=== PATIENT | male | born 1940 | race Caucasian/White ===

== ENCOUNTER 2018-07-09 10:36 | Outpatient (CLI) | payer MEDICARE ==
[~2018-07-09 10:36] MED LIST: Gadobenate Dimeglumine 529 MG/1 ML (20ML VIAL) ONE
--- NOTE | 2018-07-09 13:42 | MRI ---
MRI BRAIN WITHOUT AND WITH CONTRAST: Date: 07/09/18 HISTORY: Dementia. TECHNIQUE: Multiplanar, multisequence MR images were obtained of the brain without and with IV contrast. FINDINGS: There are scattered foci of high FLAIR signal in the subcortical and periventricular white matter, li argenis secondary to small vessel ischemic disease. Encephalomalacia is seen in the left parietooccipita l region from prior left SCIENTIFIC ARTIST distribution infarction. There is prominence of the lateral ventricles, including the temporal horns, which may be secondary to hydrocephalus and/or ex vacuo dilatation of t he ventricles secondary to cerebral atrophy. There is no evidence of intracranial hemorrhage or extra-axial fluid collections. The expected flow-v oids are present. The corpus callosum, pituitary, and craniocervical junction are unremarkable. No ab normal enhancement is seen on this examination. The calvarium and overlying soft tissues are unremarkable. Mucosal thickening is seen in the maxillar y sinuses. IMPRESSION: 1. Cerebral atrophy. 2. Hydrocephalus. 3. No evidence of acute intracranial abnormality. 4. 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 POS: [facility]
== END 2018-07-09 10:37 | disposition home or self-care (01) ==
LOC: SCSMRI 10:36
PROVIDERS: ATTEND Family Medicine
DX: I63.89 Other cerebral infarction (principal); G31.9 Degenerative disease of nervous system, unspecified; G91.9 Hydrocephalus, unspecified; I67.82 Cerebral ischemia
CPT/HCPCS: 70553; 82565; A9577

== ENCOUNTER 2018-07-30 16:57 | Observation (INO) | payer MEDICARE ==
[2018-07-30 17:35] LABS: #Basophils 0.1 thou/uL (0.0-0.2); #Eosinphils 0.2 thou/uL (0.0-0.7); #Lymphocytes 1.8 thou/uL (1.20-3.40); #Monocytes 0.7 thou/uL (0.11-0.59); #Neutrophils 5.6 thou/uL (1.40-6.50); %Basophils 0.7 % (0.0-1.0); %Eosinophils 2.9 % (0.0-10.0); %Lymphocytes 21.2 % (21.0-51.0); %Monocytes 8.4 % (0.0-10.0); %Neutrophils 66.8 % (42.0-75.0); Hemoglobin 14.8 g/dL (14.0-18.0); Mean Corpuscular HGB CONC 33.6 g/dL (32.0-36.0); Mean Corpuscular Volume 89.3 fL (78.0-98.0); Mean Platelet Volume 8.9 fL (7.4-10.4); Platelet Count 128 thou/uL (130-400); RBC Distribution Width 14.3 % (11.5-14.5); Red Blood Cell (RBC) Count 4.93 mill/uL (4.70-6.10); White Blood Cell (WBC) Count 8.3 thou/uL (4.8-10.8)
[2018-07-30 18:07] LABS: Calcium 10.4 mg/dL (7.8-10.44); Chloride 104 mmol/L (98-107); Potassium 4.1 mmol/L (3.5-5.1); Sodium 140 mmol/L (136-145)
[2018-07-30 18:13] LABS: Albumin 4.4 g/dL (3.4-4.8)
[2018-07-30 18:15] LABS: Glucose 130 mg/dL (83-110)
[2018-07-30 18:16] LABS: Globulin 3.4 g/dL (2.4-3.5); Protein, Total 7.8 g/dL (5.8-8.1)
[2018-07-30 18:17] LABS: Anion Gap 13 mmol/L (10-20); Bilirubin, Total 0.5 mg/dL (0.2-1.2); Carbon Dioxide 26 mmol/L (23-31)
[2018-07-30 18:18] LABS: Alkaline Phosphatase 89 U/L (40-150)
[2018-07-30 18:19] LABS: BUN (Urea Nitrogen) 21 mg/dL (8.4-25.7); Calc. Creatinine Clearance 0 mL/min (70-130); Estimated GFR-MDRD 58
[2018-07-30 18:20] LABS: AST (SGOT) 12 U/L (5-34)
[2018-07-30 18:21] LABS: ALT (SGPT) 8 U/L (8-55)
--- NOTE | 2018-07-30 19:33 | CT ---
FEXAM: CT brain without contrast PROVIDED CLINICAL HISTORY: Altered mental status COMPARISON: MRI of brain 07/09/2018 FINDINGS: The ventricular system remains prominent, out of proportion to the degree of sulcal prominence. There is no shift of the midline structures. The basilar cisterns appear patent. No evidence for intracran ial hemorrhage. Remote left APPAREL PATTERNMAKER distribution infarction is redemonstrated. The extracranial soft tiss ues and osseous structures demonstrate no acute abnormality. IMPRESSION: No evidence for intracranial hemorrhage or mass effect. Prominence of the ventricular system out of p roportion to the degree of sulcal prominence may reflect normal pressure hydrocephalus.
--- NOTE | 2018-07-30 20:48 | PDOC.FPRHP ---
- History of Present Illness Chief Complaint: agitation History of Present Illness: 77yo M with pmh of advanced dementia and normopresusre hydrocephalus presents to ER from [facility] for 1 month hx of increased agitation. Pt was oriented only to self and unable to provide hx though pts son [place] and [facility] were called by FM team and gained some hx that way. In addition to agitation pt has had increased unsteadyness on feet and increasing frequency of urinary incontinence. 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 No other sympoms. ED Course: CT brain- large ventricles suggestive of NPH - Allergies/Adverse Reactions Allergies Allergy/AdvReac Type Severity Reaction Status Date / Time No Known Drug Allergies Allergy Verified 07/31/18 04:26 - Home Medications Medication Instructions Recorded Confirmed Type Lorazepam [Ativan] 0.5 mg PO BID PRN 07/31/18 07/31/18 History Memantine HCl [Namenda] 10 mg PO DAILY 07/31/18 07/31/18 History Multivitamin [Daily Multiple 1 tablet 07/31/18 History Vitamin] Rivastigmine Patch [Exelon Patch] 9.5 mg TOP DAILY 07/31/18 07/31/18 History Zantac 150 mg PO DAILY 07/31/18 07/31/18 History risperiDONE [Risperdal] 0.5 mg PO DAILY 07/31/18 07/31/18 History - History PMHx: Dementia, NPH, HTN, HLD, chronic back pain since unknown back surgery, throat cancer s/p chemo/radiation and in remission PSHx: back surgery (unspecified) FHx: none Social: former ETOH abuse (last use 1 month ago) - Review of Systems General: denies: fever/chills, fatigue Respiratory: denies: shortness of breath Cardiovascular: denies: chest pain - Vital signs BP: 193/85, Pulse: 87, Resp: 18, Temp: 98.0 (Oral), Pain: 2, O2 sat: 98 on Room Air, Time: 07/30/2018 16:58. WEIGHT: 88kg - Physical Exam Constitutional: NAD, other (oriented only to person) HEENT: EOMI, conjunctiva clear, grossly normal vision, MMM Neck: supple, trachea midline Chest: no-tender to palpation Heart: RRR, normal S1/S2 Lungs: CTAB, no respiratory distress Abdomen: soft, non-tender Musculoskeletal: normal structure, normal tone Neurological: no focal deficit, CN II-XII intact, normal sensation, DTRs 2+, other (oriented only to person, decreased hearing R ear) Skin: no rash/lesions, good turgor Heme/Lymphatic: no unusual bruising or bleeding, no purpura Psychiatric: normal mood and affect FMR H&P: Results - Labs Result Diagrams: 07/30/18 17:26 07/30/18 17:26 Lab results: WBC 8.3 thou/uL (4.8-10.8) 07/30/18 17:26 Hgb 14.8 g/dL (14.0-18.0) 07/30/18 17:26 Hct 44.0 % (42.0-52.0) 07/30/18 17:26 MCV 89.3 fL (78.0-98.0) 07/30/18 17:26 Plt Count 128 thou/uL (130-400) L 07/30/18 17:26 Neutrophils % 66.8 % (42.0-75.0) 07/30/18 17:26 Sodium 140 mmol/L (136-145) 07/30/18 17:26 Potassium 4.1 mmol/L (3.5-5.1) 07/30/18 17:26 Chloride 104 mmol/L (98-107) 07/30/18 17:26 Carbon Dioxide 26 mmol/L (23-31) 07/30/18 17:26 BUN 21 mg/dL (8.4-25.7) 07/30/18 17:26 Creatinine 1.21 mg/dL (0.7-1.3) 07/30/18 17:26 Glucose 130 mg/dL (83-110) H 07/30/18 17:26 Calcium 10.4 mg/dL (7.8-10.44) 07/30/18 17:26 Total Bilirubin 0.5 mg/dL (0.2-1.2) 07/30/18 17:26 AST 12 U/L (5-34) 07/30/18 17:26 ALT 8 U/L (8-55) 07/30/18 17:26 Alkaline Phosphatase 89 U/L (40-150) 07/30/18 17:26 Serum Total Protein 7.8 g/dL (5.8-8.1) 07/30/18 17:26 Albumin 4.4 g/dL (3.4-4.8) 07/30/18 17:26 FMR H&P: A/P - Problem List (1) Hydrocephalus in adult Current Visit: Yes Status: Acute Code(s): G91.9 - HYDROCEPHALUS, UNSPECIFIED (2) Agitation Current Visit: Yes Status: Acute (3) HTN (hypertension) Current Visit: Yes Status: Acute Code(s): I10 - ESSENTIAL (PRIMARY) HYPERTENSION (4) HLD (hyperlipidemia) Current Visit: Yes Status: Acute Code(s): E78.5 - HYPERLIPIDEMIA, UNSPECIFIED (5) History of throat cancer Current Visit: Yes Status: Acute Code(s): Z85.819 - PRSNL HX OF MALIG NEOPLM OF UNSP SITE LIP,ORAL CAV,& PHARYNX - Plan Normopressure hydrocephalus with increased agitation A- Pt has been previously diagnosed and had plans for outpt f/u with Neurosurgery (Dr. Nogueira) on the of this month. CT shows evidence of this Dx as well today. On exam pt is not currently agitated. Son reports that pt has been "kicked out" of jail for good. workup otherwise negative so far. UA pending. considering hx of alcohol misuse and confabulation, will consider wernicke encephalitis as well. P- observe on stroke for neurochecks - possible neuro/neurosurg consult in AM - UDS and serum Drug screen - thiamine, folate, b12 lvls - start thiamine and b complex vitamins - f/u UA - consult CM for placement Dementia - continue home meds HTN A- pt hypertensive while agitated SBP > 180. Since then BP has normalized to 150 's/70's. No home meds are listed P- confirm home meds with son in AM HLD - confirm home meds in AM CODE: full, discussed with pt and with son who are both in agreement family: none at bedside, son [place] ) will be there in AM FMR H&P: Upper Level - Pertinent history Dominic Polk is a 77 year old male with a past history of alzheimers disease who presents to the ED for worsening agitation. Per [place] staff, pt has been more aggressive and verbally abusive to residents and staff and more difficult to manage. He has also been more "off balance" and has had urinary incontinence over the past month. An outpatient workup was started, and pt had an MRI of the brain on 07/09 that showed hydrocephalus. Neurosurgery evaluation was scheduled for later this month. - Pertinent findings Exam: General: alert and oriented to person only. In no distress, pt resting comfortably in bed Heart: regular rate and rhythm, no murmurs, rubs, or gallops. Lungs: clear to auscultation bilaterally. Neuro: CN II-XII intact grossly; No focal deficits; 2+ reflexes. CT brain: prominence of ventricles out of proportion to degree of sulcal prominence; no acute pathology. - Plan Date/Time: 07/30/182046 I, Beverley Merritt, have evaluated this patient and agree with findings/plan as outlined by rn international resident. Pertinent changes/additions are listed here. Likely Normal pressure hydrocephalus - will admit to medical unit for observation - likely discuss pt w/ Dr. Nogueira in AM. Pt may require LP for diagnosis and treatment - with worsening encephalopathy, will also check UA, UDS/SDS, NH3 for other causes of encephalopathy. - pending medical clearance, pt may also need MR eval for placement. Addendum - Attending - Attending Attestation Date/Time: 07/31/18 07 I personally evaluated the patient and discussed the management with Dr. Ureña last night. I agree with the History, Examination, Assessment and Plan documented above with any addition or exceptions noted below.
[2018-07-30] MEDS ORDERED: Haloperidol Lactate 5 MG/ML VIAL IM PRN (21:05)
[2018-07-30] MEDS ORDERED: Acetaminophen 325 MG TAB PO PRN (21:05)
[2018-07-30] MEDS ORDERED: Calcium Carbonate 500 MG ChewTAB PO PRN (21:05)
[2018-07-30 21:28] LABS: Acetaminophen Less than 6.0 mcg/mL (10.0-30.0); Alcohol Less than 10 mg/dL (Less than 10); Salicylate Less than 8.0 mg/dL (15.0-30.0)
[2018-07-31 00:28] VITALS: BMI 32.6
[2018-07-31] MEDS ORDERED: Lorazepam 0.5 MG TAB PO PRN (02:28)
--- NOTE | 2018-07-31 07:56 | PDOC.EVN ---
Event Note - Event Note Event Note: Patient's PCP is Dr. Chavez discussed case with Dr. Chavez, to transfer care, who states that Hospitalist service admits for his patients. Discussed case with Dr. Beckwith who will talk with Dr. Branch to accept care of patient. Will sign off.
[2018-07-31] MEDS: Rivastigmine 9.5mg/24 Hour PATCH TOP SCH (09:16)
[2018-07-31] MEDS: Thiamine 100 MG TAB PO SCH (09:16)
[2018-07-31] MEDS: risperiDONE 0.25 MG TAB PO SCH (09:16)
[2018-07-31 09:17] LABS: Bilirubin Negative (Negative); Blood, Urine Trace (Negative); Clarity CLOUDY (Clear); Glucose, Urine (Dipstick) Negative (Negative); Leukocyte Small (Negative); Nitrite Positive (Negative); Protein, Urine (Dipstick) Negative (Neg-Trace); Specific Gravity, Urine 1.014 (1.002-1.036); pH, Urine 6.5 (5.0-9.0)
[2018-07-31] MEDS: Multivit, Therapeutic 1 TAB PO SCH (09:17)
[2018-07-31] MEDS: Folic Acid/Vit B Comp W-C PO SCH (09:17)
[2018-07-31] MEDS: Famotidine 20 MG TAB PO SCH ×2 (09:17→21:48)
[2018-07-31 09:21] LABS: Bacteria/HPF 2+ HPF (None Seen); Hyaline Casts/LPF 0-3 HYALINE CAST LPF (0-3 Hyaline); Pathc Cast-AUWi Flag 0.13 (0-2.49); Squamous Epithelial None Seen HPF (0-3); WBC/HPF 21-50 HPF (0-3)
[2018-07-31 09:29] LABS: Amphetamine Not Detected (NotDetected); Barbiturates Screen Not Detected (NotDetected); Benzodiazepine Screen Detected (NotDetected); Cocaine Metabolite Screen Not Detected (NotDetected); Medtox Control Line Valid? VALID (VALID); Medtox Reader # READER 1; Methadone Not Detected (NotDetected); Methamphetamine Not Detected (NotDetected); Opiate Screen Not Detected (NotDetected); Oxycodone Screen Not Detected (NotDetected); Phencyclidine (PCP) Not Detected (NotDetected); THC/Cannabinoid Screen Not Detected (NotDetected); Tricyclic Screen Not Detected (NotDetected)
--- NOTE | 2018-07-31 18:27 | PDOC.PN ---
- Subjective Encounter Start Date: 07/31/18 Encounter Start Time: 18:10 Subjective: f/u for AMS, dementia, combativeness and ? UTI. Son reports hx of -: progressive dementia, no change to chronic meds other than Exelon. -: Lives in memory care at [facility]. - Objective Resuscitation Status - Order Detail: 07/30/18 21:05 Resuscitation Status Routine Co-Sign Provider: Resuscitation Status: FULL: Full Resuscitation Discussed with: Patient, will check with son. MAR Reviewed: Yes Vital Signs & Weight: Vital Signs (12 hours) Temp Pulse Pulse Resp BP BP BP 07/31/18 15:39 98.4 F 62 20 158/80 H 07/31/18 13:11 64 157/69 H 180/77 H 07/31/18 11:41 98.2 F 70 18 147/70 H 07/31/18 07:58 98.0 F 57 L 18 114/46 L Pulse Ox 07/31/18 15:39 90 L 07/31/18 13:11 07/31/18 11:41 92 L 07/31/18 07:58 92 L Weight Weight 221 lb 4.8 oz I&O: 07/30/18 07/31/18 08/01/18 06:59 06:59 06:59 Output Total 200 Balance -200 Result Diagrams: 07/30/18 17:26 07/30/18 17:26 Radiology Reviewed by me: Yes (CT brain - hydrocephalus) EKG Reviewed by me: Yes (Tele - SR) Phys Exam - Physical Examination Constitutional: NAD alert, responsive HEENT: PERRLA, sclera anicteric, oral pharynx no lesions Neck: no nodes, no JVD, supple, full ROM Respiratory: no wheezing, no rales, no rhonchi, clear to auscultation bilateral S1, S2 Cardiovascular: RRR, no significant murmur, no rub, gallop Gastrointestinal: soft, non-tender, no distention, positive bowel sounds Musculoskeletal: no edema, pulses present Neurological: normal sensation, moves all 4 limbs A x O x 1 Skin: normal turgor, cap refill <2 seconds Dx/Plan (1) Acute metabolic encephalopathy Code(s): G93.41 - METABOLIC ENCEPHALOPATHY Status: Acute Comment: Likely multifactorial including suspected UTI, see below for mgmt (2) UTI (urinary tract infection) Status: Acute Comment: Suspected, start Rocephin 2gm IV daily, await final Ucx results (3) Dementia Code(s): F03.90 - UNSPECIFIED DEMENTIA WITHOUT BEHAVIORAL DISTURBANCE Status: Chronic Qualifiers: Dementia type: Alzheimer's disease Comment: Likely Alzheimer's in combination with ETOH influence, supportive mgmt (4) HTN (hypertension) Code(s): I10 - ESSENTIAL (PRIMARY) HYPERTENSION Status: Chronic Qualifiers: Hypertension type: essential hypertension Qualified Code(s): I10 - Essential (primary) hypertension Comment: Resume home BP regimen, serial monitoring (5) Hydrocephalus in adult Code(s): G91.9 - HYDROCEPHALUS, UNSPECIFIED Status: Chronic Comment: Suspected, consult Neurosurgery for recommendations - Plan plan discussed w/ family, continue antibiotics, PT/OT, social service director, out of bed/ambulate, DVT proph w/SCDs Stable currently -: Start Rocephin 2gm IV daily -: Resume Trileptal and Lexapro -: Continue Namenda -: AM lab: TSH, Folate, B12, Mg++, PO3 * Likely home in am 08/01/18
[2018-07-31] MEDS ORDERED: cefTRIAXone\\ROCEPHIN 2 GM in Sodium Chloride 0.9% 100 ML IVPB SCH (20:00)
[2018-07-31] MEDS: OXcarbazepine 300 MG TAB PO SCH (21:48)
--- NOTE | 2018-07-31 22:52 | PDOC.EVN ---
Event Note - Event Note Event Note: Patient with dementia, calm but refusing IV access. Discontinued Rocephin and placed an order for Cipro 500 mg PO BID.
[2018-07-31] MEDS ORDERED: Cipro 250 MG TAB PO SCH (23:00)
[2018-08-01] MEDS: Cipro 250 MG TAB PO SCH ×2 (05:06→20:24)
[2018-08-01] MEDS: Doxazosin Mesylate 4 MG TAB PO SCH (10:23)
[2018-08-01] MEDS: NIFEdipine XL 90 MG TAB PO SCH (10:23)
[2018-08-01] MEDS: Rivastigmine 9.5mg/24 Hour PATCH TOP SCH (10:23)
[2018-08-01] MEDS: Folic Acid/Vit B Comp W-C PO SCH (10:24)
[2018-08-01] MEDS: Escitalopram Oxalate 10 mg Tablet PO SCH (10:24)
[2018-08-01] MEDS: OXcarbazepine 300 MG TAB PO SCH ×2 (10:25→20:24)
[2018-08-01] MEDS: Multivit, Therapeutic 1 TAB PO SCH (10:25)
[2018-08-01] MEDS: Famotidine 20 MG TAB PO SCH ×2 (10:25→20:24)
[2018-08-01] MEDS: Thiamine 100 MG TAB PO SCH (10:25)
[2018-08-01] MEDS: risperiDONE 0.25 MG TAB PO SCH (10:26)
--- NOTE | 2018-08-01 13:29 | PDOC.PN ---
- Subjective Encounter Start Date: 08/01/18 Encounter Start Time: 13:25 Subjective: f/u for AMS, combativeness and UTI. Nsg reports pt refused IV and lab -: draw. No other combative or aggressive behavior observed. - Objective Resuscitation Status - Order Detail: 07/30/18 21:05 Resuscitation Status Routine Co-Sign Provider: Resuscitation Status: FULL: Full Resuscitation Discussed with: Patient, will check with son. MAR Reviewed: Yes Vital Signs & Weight: Vital Signs (12 hours) Temp Pulse Pulse Pulse Resp BP BP 08/01/18 11:38 98.1 F 64 18 08/01/18 10:55 60 71 199/81 H 08/01/18 10:23 61 188/96 H 08/01/18 07:56 97.9 F 61 16 08/01/18 05:08 97.7 F 64 20 BP BP Pulse Ox 08/01/18 11:38 174/67 H 94 L 08/01/18 10:55 202/84 H 08/01/18 10:23 08/01/18 07:56 188/96 H 92 L 08/01/18 05:08 172/88 H 91 L Weight Weight 221 lb 4.8 oz I&O: 07/31/18 08/01/18 08/02/18 06:59 06:59 06:59 Intake Total 240 Output Total 200 Balance -200 240 Result Diagrams: 07/30/18 17:26 07/30/18 17:26 EKG Reviewed by me: Yes (Tele - SR) Phys Exam - Physical Examination Constitutional: NAD HEENT: PERRLA, sclera anicteric, oral pharynx no lesions Neck: no nodes, no JVD, supple, full ROM Respiratory: no wheezing, no rales, no rhonchi, clear to auscultation bilateral Cardiovascular: RRR, no significant murmur, no rub, gallop Gastrointestinal: soft, non-tender, no distention, positive bowel sounds Musculoskeletal: no edema, pulses present Neurological: normal sensation, moves all 4 limbs A x O x 1 Skin: normal turgor, cap refill <2 seconds Dx/Plan (1) Acute metabolic encephalopathy Code(s): G93.41 - METABOLIC ENCEPHALOPATHY Status: Acute Comment: Likely multifactorial including suspected UTI, see below for mgmt (2) UTI (urinary tract infection) Status: Acute Comment: Suspected, continue Ciprofloxacin, increase free-H2O intake po (3) Dementia Code(s): F03.90 - UNSPECIFIED DEMENTIA WITHOUT BEHAVIORAL DISTURBANCE Status: Chronic Qualifiers: Dementia type: Alzheimer's disease Comment: Likely Alzheimer's in combination with ETOH influence, supportive mgmt (4) HTN (hypertension) Code(s): I10 - ESSENTIAL (PRIMARY) HYPERTENSION Status: Chronic Qualifiers: Hypertension type: essential hypertension Qualified Code(s): I10 - Essential (primary) hypertension Comment: Resume home BP regimen, serial monitoring (5) Hydrocephalus in adult Code(s): G91.9 - HYDROCEPHALUS, UNSPECIFIED Status: Chronic Comment: Suspected, consult Neurosurgery for recommendations - Plan continue antibiotics, PT/OT, social media senior associate, out of bed/ambulate, DVT proph w/ SCDs Stable currently -: Awaiting Neurosurgery evaluation and any further recommendations -: regarding hydrocephalus -: Continue Cipro 500mg BID -: OOB with PT * Dispo planning regarding return to [facility] vs [facility] or another SNF
--- NOTE | 2018-08-02 00:57 | CON ---
DATE OF CONSULTATION: This is Jillian Alonzo PA-C dictating a report for Ismael Lala MD. HISTORY OF PRESENT ILLNESS: The patient is a 77-year-old male with a past medical history of dementia, hypertension, hyperlipidemia, chronic back pain, history of throat cancer in remission, who presented to the emergency department on 07/30/2018 for increased agitation and altered mental status. The patient has a known history of advanced dementia and lives at the [facility] in the Memory Care unit. He was evaluated with a noncontrast CT head, which was notable for ventriculomegaly. He was also found to have UA consistent with urinary tract infection. Neurosurgery was consulted for further evaluation of ventriculomegaly seen on CT. This is recently being evaluated for by his PCP as well as an outpatient basis. The patient had been seen in followup outpatient for progressive memory changes, some gait instability and urinary incontinence. They did an outpatient MRI, which was similar to today's CT. He has plans to follow up with outpatient Neurosurgery, Dr. Nogueira and Dr. Jayy Durbin on 08/11/2018. PAST MEDICAL HISTORY: Dementia, hypertension, hyperlipidemia, chronic back pain , history of throat cancer in remission. PAST SURGICAL HISTORY: Prior back surgery. FAMILY HISTORY: Noncontributory. SOCIAL HISTORY: The patient lives in the Memory Care unit at the [facility]. He does not currently drink or use any drugs. REVIEW OF SYSTEMS: Per HPI. PHYSICAL EXAMINATION: VITAL SIGNS: Temperature is 98.1, pulse is 62, respiration rate is 20, he is 91 % on room air, but BP is 118/56. CONSTITUTIONAL: The patient is awake, alert, in no acute distress. He is oriented x3. HEAD: Head, normocephalic and atraumatic. Eyes, PERRLA. Extraocular movements intact. ENT oral mucosa is pink, intact, and moist. He has normal voice. NECK: Nontender to palpation. Free active range of motion. No meningismus or nuchal rigidity. CARDIAC: Regular rate and rhythm. LUNGS: The patient is breathing comfortably with symmetric chest expansion. MUSCULOSKELETAL: He has free active range of motion of all extremities. No focal motor weakness. No reflex asymmetry. NEUROLOGIC: He is currently A and O x4. He is pleasant and comfortable. No focal neurologic deficits are appreciated on my exam. I did not attempt to ambulate the patient, but he reports he is ambulating with his walker without any difficulty. ASSESSMENT AND PLAN: This is a 77-year-old male recently admitted for increased agitation and altered mental status with known baseline dementia. He was found to have a urinary tract infection during this admission. He is being treated for this with oral antibiotics at this time. His agitation has improved during his admission course. His CT head was notable for ventriculomegaly and this corresponds with a recent MRI in June 2018. The patient currently has outpatient followup scheduled with Dr. Nogueira and Dr. Jayy Durbin on 08/11/2018 for evaluation of a possible underlying NPH. At this time, patient's acute agitation and altered mental status are approved and we feel that he can be appropriately discharged with outpatient followup with the Neurosurgery team. Please reach out to Neurosurgery for additional questions or concerns. Job ID: [id number] MTDD
[2018-08-02] MEDS: Cipro 250 MG TAB PO SCH ×2 (05:23→19:39)
[2018-08-02] MEDS: Escitalopram Oxalate 10 mg Tablet PO SCH (09:06)
[2018-08-02] MEDS: OXcarbazepine 300 MG TAB PO SCH (09:06)
[2018-08-02] MEDS: risperiDONE 0.25 MG TAB PO SCH (09:07)
[2018-08-02] MEDS: Rivastigmine 9.5mg/24 Hour PATCH TOP SCH (09:08)
[2018-08-02] MEDS: Multivit, Therapeutic 1 TAB PO SCH (09:08)
[2018-08-02] MEDS: NIFEdipine XL 90 MG TAB PO SCH (09:08)
[2018-08-02] MEDS: Folic Acid/Vit B Comp W-C PO SCH (09:08)
[2018-08-02] MEDS: Famotidine 20 MG TAB PO SCH (09:08)
[2018-08-02] MEDS: Thiamine 100 MG TAB PO SCH (09:09)
[2018-08-02] MEDS: Doxazosin Mesylate 4 MG TAB PO SCH (09:15)
[2018-08-02 12:29] LABS: Magnesium 2.1 mg/dL (1.6-2.6); Phosphorus 2.9 mg/dL (2.3-4.7)
[2018-08-02 12:37] LABS: Folate (Folic Acid) 9.2 ng/mL (7.0-31.4)
[2018-08-02 19:44] VITALS: BP 145/67; TEMP 97.6
--- NOTE | 2018-08-03 02:49 | DIS ---
DATE OF ADMISSION: 07/30/2018 DATE OF DISCHARGE: 08/02/2018 DISCHARGE DIAGNOSES: 1. Acute metabolic encephalopathy, multifactorial including urinary tract infection. 2. Urinary tract infection, organism not identified. 3. Dementia, advanced, likely due to Alzheimer disease. 4. Hypertension, chronic. 5. Hydrocephalus, suspected. CONSULTATIONS: Neurosurgical Service. PERTINENT LAB AND X-RAY FINDINGS: Basic metabolic profile within normal limits. Phosphorus 2.9, magnesium 2.1. LFTs within normal limits. Serum ammonia level 31. Vitamin B12 level 452, folate 9.20, TSH 2.27. CBC within normal limits. Urine drug screen positive for benzodiazepines. CT of the brain without contrast dated 07/30/2018, showed no acute intracranial process. Prominence of ventricular system out of proportion to the degree of sulcal prominence, likely due to normal pressure hydrocephalus. HOSPITAL COURSE: The patient was initially admitted after presenting with behavioral changes, combativeness, and aggressive behavior in the context of advanced dementia, currently residing in Memory Care Unit at the [place], [place]. The patient underwent extensive evaluation including CT of the brain showing evidence of hydrocephalus. The patient was evaluated by the Neurosurgical Service with recommendations for outpatient followup and no acute intervention. The patient underwent general metabolic screening with essentially negative findings except for suspected urinary tract infection after initial urinalysis showed nitrite and leukocyte esterase positive sample. The patient was initiated on ciprofloxacin and continued ciprofloxacin through the hospital course. Urine culture was not performed and a specific organism was not identified. The patient was evaluated by the Physical Therapy Service, ambulating with a rolling walker and standby assistance. The patient overall remained clinically stable with stable vital signs noted throughout the hospital course. The patient was approved for ongoing skilled care at [facility]. I have examined the patient at the time of discharge and discussed followup instructions. The patient clinically stable and ready for discharge on 08/02/2018. DISCHARGE MEDICATIONS: 1. Acetaminophen 650 mg p.o. b.i.d. p.r.n. 2. Cardura 4 mg p.o. daily. 3. Lexapro 15 mg p.o. daily. 4. Ativan 0.5 mg p.o. b.i.d. p.r.n. 5. Namenda 10 mg p.o. b.i.d. 6. Multivitamin 1 tablet p.o. daily. 7. Nifedipine extended release 90 mg p.o. daily. 8. [place]-3 fatty acids 1 capsule p.o. b.i.d. 9. Omeprazole 40 mg p.o. b.i.d. 10. Trileptal 450 mg p.o. b.i.d. 11. Exelon patch 9.5 mg topically daily. 12. Terbinafine 1% one application topically at bedtime. 13. Levaquin 500 mg p.o. daily x7 days. FOLLOWUP: The patient may follow up with his primary care provider, Dr. Mikey Chavez. The patient will follow up with Dr. Nogueira with Neurosurgical Service on 08/11/2018. CONDITION ON DISCHARGE: Stable. ACTIVITY: Rolling walker with standby assistance. DIET: Regular. CODE STATUS: Full. DISPOSITION: Discharged to [facility], 08/02/2018. Job ID: [id number]
== END 2018-08-02 20:54 ==
LOC: ERS 16:57 → ERHOLD 20:25 → 2SE 23:34
PROVIDERS: ADMIT Family Medicine; ATTEND Family Medicine
DX: G93.41 Metabolic encephalopathy (principal); N39.0 Urinary tract infection, site not specified; I10 Essential (primary) hypertension; G89.29 Other chronic pain; M54.9 Dorsalgia, unspecified; F10.11 Alcohol abuse, in remission; G30.9 Alzheimer's disease, unspecified; F02.81 Dementia in other diseases classified elsewhere, unspecified severity, with behavioral disturbance; Z79.899 Other long term (current) drug therapy; Z85.819 Personal history of malignant neoplasm of unspecified site of lip, oral cavity, and pharynx
CPT/HCPCS: 70450; 80053; 80306; 80307; 82140; 82607; 82746; 83735; 84100; 84425; 84443; 85025; 97116 ×2; 97139; 97530 ×2; 99285; G0378 ×3; 36415; 81003; 81015